=== PATIENT | male | born 1975 | race Caucasian/White ===

== ENCOUNTER 2022-04-15 10:04 | Emergency (ER) | payer OTHER ==
[2022-04-15] MEDS ORDERED: Ketorolac Tromethamine 30 MG/ML VIAL ONE (10:42)
[2022-04-15] MEDS ORDERED: Diazepam 5 MG TAB ONE (10:42)
[2022-04-15] MEDS ORDERED: Dexamethasone 10 MG/ML VIAL ONE (11:36)
[2022-04-15] MEDS ORDERED: traMADol HCl 50 MG TAB ONE (11:36)
[2022-04-15] MEDS ORDERED: Acetaminophen 500 MG TAB ONE (11:36)
== END 2022-04-15 14:55 | disposition home or self-care (01) ==
LOC: CSHERS 10:04
DX: M62.838 Other muscle spasm (principal); K21.9 Gastro-esophageal reflux disease without esophagitis
CPT/HCPCS: 71045; 93005; 96372; J1100; J1885

== ENCOUNTER 2022-07-05 12:41 | Outpatient (CLI) | payer OTHER | END 2022-07-05 12:42 | disposition home or self-care (01) | LOC: CSHRAD 12:41 | PROVIDERS: ATTEND Surgery | DX: M54.12 Radiculopathy, cervical region (principal); Z98.890 Other specified postprocedural states | CPT/HCPCS: 72040 ==

== ENCOUNTER 2022-12-13 19:29 | Emergency (ER) | payer OTHER ==
[2022-12-13 20:03] LABS: #Basophils 0.1 10x3/uL (0.0-0.2); #Eosinphils 0.5 10x3/uL (0.0-0.5); #Neutrophils 3.4 10x3/uL (1.5-8.4); %Basophils 0.9 % (0.0-2.0); %Eosinophils 5.9 % (0.0-6.0); %Lymphocytes 36.6 % (18.0-47.0); %Neutrophils 43.1 % (40.0-75.0); Hemoglobin 13.5 g/dL (13.5-17.5); Mean Corpuscular HGB CONC 33.2 g/dL (32.0-36.0); Mean Corpuscular Hemoglobin 30.2 pg (27.0-33.0); Mean Corpuscular Volume 91.1 fl (81.2-95.1); Mean Platelet Volume 9.5 fl (7.4-10.4); Platelet Count 391 10x3/uL (150-450); Red Blood Cell (RBC) Count 4.47 10x6/uL (4.32-5.72); White Blood Cell (WBC) Count 7.9 10x3/uL (3.5-10.5)
[2022-12-13 20:16] LABS: ALT (SGPT) 28 U/L (8-55); AST (SGOT) 22 U/L (5-34); Albumin 4.3 g/dL (3.5-5.0); Alkaline Phosphatase 59 U/L (40-110); Anion Gap 16 mmol/L (10-20); BUN (Urea Nitrogen) 15 mg/dL (8.9-20.6); Bilirubin, Total 0.2 mg/dL (0.2-1.2); Calc. Creatinine Clearance 0 mL/min (70-130); Calcium 9.2 mg/dL (7.8-10.44); Carbon Dioxide 22 mmol/L (22-29); Chloride 105 mmol/L (98-107); Estimated GFR 79; Globulin 3.7 g/dL (2.4-3.5); Glucose 99 mg/dL (70-105); Potassium 3.7 mmol/L (3.5-5.1); Sodium 139 mmol/L (136-145)
[2022-12-13 22:29] LABS: Troponin I Less than 0.010 ng/mL (< 0.028)
== END 2022-12-13 22:42 | disposition home or self-care (01) ==
LOC: CSHERS 19:29
DX: R07.9 Chest pain, unspecified (principal); K21.9 Gastro-esophageal reflux disease without esophagitis
CPT/HCPCS: 36415; 71045; 80053; 83880; 84484; 85025; 93005

== ENCOUNTER 2024-04-07 12:55 | Outpatient (CLI) | payer BC ==
[~2024-04-07 12:55] MED LIST: Iopamidol 300 61% 100 ML VIAL FS ONE
== END 2024-04-07 12:56 | disposition home or self-care (01) ==
LOC: CSHCT 12:55
PROVIDERS: ATTEND Internal Medicine
DX: R10.32 Left lower quadrant pain (principal)
CPT/HCPCS: 74177

== ENCOUNTER 2024-12-15 09:51 | Outpatient (CLI) | payer BC | END 2024-12-15 09:52 | disposition home or self-care (01) | LOC: CSHMRI 09:51 | PROVIDERS: ATTEND Internal Medicine | DX: R51.9 Headache, unspecified (principal) | CPT/HCPCS: 70551 ==

== ENCOUNTER 2025-01-28 20:11 | Emergency (ER) | payer BC ==
[2025-01-28] MEDS ORDERED: Acetaminophen 500 MG TAB ONE (20:47)
[2025-01-28] MEDS ORDERED: Cyclobenzaprine 10 MG TAB ONE (20:47)
[2025-01-28] MEDS ORDERED: Ketorolac Tromethamine 30 MG (1 mL) VIAL ONE (20:47)
[2025-01-28] MEDS ORDERED: Dexamethasone 10 MG/ML VIAL ONE (22:21)
== END 2025-01-29 00:28 | disposition home or self-care (01) ==
LOC: CSHERS 20:11
DX: M54.31 Sciatica, right side (principal)
CPT/HCPCS: 96374; 96375; 96376; J1100; J1885; J2270; J3010

== ENCOUNTER 2025-01-30 14:41 | Observation (INO) | payer BC ==
[~2025-01-30 14:41] MED LIST changes: -Iopamidol 300 61% 100 ML VIAL FS ONE; +Iopamidol 370 76% 100 ML VIAL ONE
[2025-01-30] MEDS ORDERED: HYDROmorphone 0.5 MG/0.5 ML SYRINGE ONE ×2 (15:54→16:46)
[2025-01-30] MEDS ORDERED: Ketorolac Tromethamine 30 MG (1 mL) VIAL ONE (15:55)
[2025-01-30] MEDS ORDERED: Ondansetron PF 4 MG/2 ML Vial ONE (15:55)
[2025-01-30 18:21] LABS: #Basophils 0.04 10x3/uL (0.0-0.2); #Eosinophils 0.16 10x3/uL (0.0-0.5); #Monocytes 0.53 10x3/uL (0.0-1.1); #Neutrophils 4.84 10x3/uL (1.5-8.4); %Basophils 0.5 % (0.0-2.0); %Eosinophils 2.1 % (0.0-6.0); %Lymphocytes 25.9 % (18.0-47.0); %Monocytes 7.0 % (0.0-10.0); %Neutrophils 63.8 % (40.0-75.0); Hematocrit 40.3 % (38.8-50.0); Hemoglobin 13.1 g/dL (13.5-17.5); Mean Corpuscular Hemoglobin 29.7 pg (27.0-33.0); Mean Corpuscular Volume 91.4 fL (81.2-95.1); Platelet Count 322 10x3/uL (150-450); Red Blood Cell (RBC) Count 4.41 10x6/uL (4.32-5.72); White Blood Cell (WBC) Count 7.58 10x3/uL (3.5-10.5)
[2025-01-30 18:31] LABS: INR-International Normal Ratio 1.0; PTT 25.4 sec (22.0-33.0); Prothrombin Time 10.9 sec (9.5-12.1)
[2025-01-30 18:35] LABS: ALT (SGPT) 46 U/L (Less than 45); AST (SGOT) 29 U/L (11-34); Albumin 4.1 g/dL (3.1-4.5); Alkaline Phosphatase 52 U/L (40-110); Anion Gap 13 mmol/L (10-20); BUN (Urea Nitrogen) 20 mg/dL (8.9-20.6); Bilirubin, Total 0.2 mg/dL (0.3-1.2); Calc. Creatinine Clearance 0 mL/min (70-130); Calcium 8.7 mg/dL (7.8-10.44); Carbon Dioxide 27 mmol/L (22-29); Chloride 102 mmol/L (98-107); Globulin 2.9 g/dL (2.4-3.5); Glucose 103 mg/dL (70-105); Potassium 3.8 mmol/L (3.5-5.1); Sodium 138 mmol/L (136-145)
[2025-01-30 18:38] LABS: Troponin I Less than 0.010 ng/mL (< 0.028)
[2025-01-30] MEDS ORDERED: Senokot S 8.6-50 MG TAB PO PRN (19:21)
[2025-01-30] MEDS ORDERED: Ondansetron PF 4 MG/2 ML Vial IVP PRN (19:21)
[2025-01-30] MEDS ORDERED: Calcium Carbonate 500 MG ChewTAB PO PRN (19:21)
[2025-01-30] MEDS ORDERED: Ketorolac Tromethamine 30 MG (1 mL) VIAL IVP PRN (19:27)
[2025-01-30] MEDS ORDERED: Famotidine 20 MG TAB ONE (21:07)
[2025-01-30] MEDS ORDERED: Aspirin Chewable 81 MG TAB ONE (21:11)
[2025-01-30] MEDS: Famotidine 20 MG TAB PO SCH (22:17)
[2025-01-30 22:50] VITALS: BMI 35.6
[2025-01-30] MEDS: Ketorolac Tromethamine 30 MG (1 mL) VIAL IVP PRN (23:06)
[2025-01-30] MEDS: Pregabalin 50 MG CAP PO SCH (23:08)
[2025-01-31] MEDS: Acetaminophen 325 MG TAB PO PRN (02:27)
[2025-01-31] MEDS: oxyCODONE 5 MG TAB PO PRN (02:27)
[2025-01-31] MEDS: Gabapentin 300 MG CAP PO SCH (05:26)
[2025-01-31 08:13] VITALS: TEMP 97.6
[2025-01-31] MEDS: Enoxaparin 40 MG (0.4 mL) SYRINGE SC SCH (09:30)
[2025-01-31] MEDS: Dexamethasone 10 MG/ML VIAL SLOW IVP SCH (09:30)
[2025-01-31] MEDS: Pregabalin 50 MG CAP PO SCH (09:30)
[2025-01-31] MEDS: Transdermal Patch Removal TOP SCH (09:30)
[2025-01-31 09:32] VITALS: BP 124/74
== END 2025-01-31 11:53 | disposition home or self-care (01) ==
LOC: CSHERS 14:41 → SUATTDRO 14:41 → CSHTELE 19:21
PROVIDERS: ADMIT Internal Medicine; ATTEND Internal Medicine
DX: M54.50 Low back pain, unspecified (principal); M79.605 Pain in left leg; M79.604 Pain in right leg; M25.512 Pain in left shoulder; F39 Unspecified mood [affective] disorder; E66.9 Obesity, unspecified; Z68.35 Body mass index [BMI] 35.0-35.9, adult; Z88.8 Allergy status to other drugs, medicaments and biological substances
CPT/HCPCS: 36415; 71045; 71275; 74174; 80053; 84484; 85025; 85610; 85730; 93005; 94760; 96374; 96375; 96376; G0378; J1171; J1885; J2405; J2919; J3360; Q9967

== ENCOUNTER 2025-03-17 16:22 | Emergency (ER) | payer BC ==
[2025-03-17] MEDS ORDERED: Ketorolac Tromethamine 30 MG (1 mL) VIAL ONE (17:37)
[2025-03-17] MEDS ORDERED: Acetaminophen 500 MG TAB ONE (17:37)
[2025-03-17 17:52] LABS: #Basophils Less than 0.03 10x3/uL (0.0-0.2); #Eosinophils 0.14 10x3/uL (0.0-0.5); #Monocytes 0.68 10x3/uL (0.0-1.1); #Neutrophils 3.28 10x3/uL (1.5-8.4); %Basophils 0.3 % (0.0-2.0); %Eosinophils 2.4 % (0.0-6.0); %Lymphocytes 27.6 % (18.0-47.0); %Monocytes 11.9 % (0.0-10.0); %Neutrophils 57.5 % (40.0-75.0); Hematocrit 40.4 % (38.8-50.0); Hemoglobin 13.4 g/dL (13.5-17.5); Mean Corpuscular Hemoglobin 30.0 pg (27.0-33.0); Mean Corpuscular Volume 90.4 fL (81.2-95.1); Platelet Count 354 10x3/uL (150-450); Red Blood Cell (RBC) Count 4.47 10x6/uL (4.32-5.72); White Blood Cell (WBC) Count 5.72 10x3/uL (3.5-10.5)
[2025-03-17 18:09] LABS: ALT (SGPT) 32 U/L (Less than 45); AST (SGOT) 32 U/L (11-34); Albumin 3.9 g/dL (3.1-4.5); Alkaline Phosphatase 52 U/L (40-110); Anion Gap 12 mmol/L (10-20); BUN (Urea Nitrogen) 14 mg/dL (8.9-20.6); Bilirubin, Total 0.2 mg/dL (0.3-1.2); Calc. Creatinine Clearance 0 mL/min (70-130); Calcium 9.5 mg/dL (7.8-10.44); Carbon Dioxide 24 mmol/L (22-29); Chloride 108 mmol/L (98-107); Globulin 3.2 g/dL (2.4-3.5); Glucose 84 mg/dL (70-105); Potassium 4.1 mmol/L (3.5-5.1); Sodium 140 mmol/L (136-145)
== END 2025-03-17 19:36 | disposition home or self-care (01) ==
LOC: CSHERS 16:22
DX: K59.00 Constipation, unspecified (principal)
CPT/HCPCS: 74177; 80053; 85025; 96374; J1885